=== PATIENT | male | born 1950 | race Caucasian/White ===

== ENCOUNTER 2017-01-10 09:06 | Day surgery (SDC) | payer OTHER ==
[~2017-01-10 09:06] MED LIST: ASPI325 PO; ASPI81CH PO; CRUTCH2 USE; FINA5 PO; FLOMAX; Hydrocodone-Ap1 EA23 PO; METH10 PO; METO50ER PO; MORP30ER PO; NAPR220 PO; OXYACE5T PO; Senna8.6 MG PO; TAMS.4ER PO
--- NOTE | 2017-01-10 11:43 | NUR ---
1100 RECIEVED PT FROM RADIOLOGY DEPT SP LIVER BX. RT FLANK BANDAID D/I. HR 160. BP WNL. PT ASYMPTOMATIC.3 LEAD PLACED, APPEARS SR. 12 LEAD DONE SHOWING A FLUTTER.CALLED JOSH POSADA IN RADIOLOGY. SHE SPOKE TO DR LECHUGA WHO ORDERED PT TO GO TO ER. PINO LECHUGA CALLED ER DOC. 1130 PT TAKEN TO ER. PT STAYED STABLE ASYMPTOMATIC T/O 30 MIN STAY IN DAY SURGERY BUT HR CONTIUED AT 159-161. 1130 PT TAKEN TO ER ROOM 10 VIA DARNELL,REPORT GIVEN TO AIMEE OSBORNE RN
[2017-01-12] MEDS ORDERED: BUPRENORPHIN-N1 EACH SL (13:17)
[2017-01-12] MEDS ORDERED: Cardizem CD 12120 MG PO (15:55)
[2017-10-09] MEDS ORDERED: ASPI81CH PO (14:01)
[2017-12-09] MEDS ORDERED: FISH OIL + D31 EACH PO (10:55)
[2017-12-09] MEDS ORDERED: MILK THISTLE1 GM PO (10:55)
[2017-12-09] MEDS ORDERED: Hair, Skin & N1 EACH PO (10:55)
[2017-12-09] MEDS ORDERED: VISINE TOTALITY15 ML (10:57)
[2017-12-09] MEDS ORDERED: MAVYRET 100-401 EACH PO (10:58)
[2018-01-14] MEDS ORDERED: Aspirin EC81 MG PO (12:42)
[2018-01-14] MEDS ORDERED: FISH OIL 1,0001 EAC1 PO (12:43)
== END 2017-01-10 22:46 | disposition home or self-care (01) ==
LOC: US 09:06
PROVIDERS: Radiology Diagnostic Radiology
PROC: 0FB03ZX Excision of Liver, Percutaneous Approach, Diagnostic (ICD-10-PCS; principal; 2017-01-10 11:00)
DX: B19.20 Unspecified viral hepatitis C without hepatic coma (principal); I97.89 Other postprocedural complications and disorders of the circulatory system, not elsewhere classified; R00.0 Tachycardia, unspecified; K80.20 Calculus of gallbladder without cholecystitis without obstruction
CPT/HCPCS: 47000; 76705; 76942; 88307; 88313

== ENCOUNTER 2017-02-14 02:43 | Day surgery (SDC) | payer OTHER ==
[~2017-02-14] VITALS: Ht 182.9 cm; Wt 75.0 kg
[~2017-02-14 02:43] MED LIST changes: +BUPRENORPHIN-N1 EACH SL; +Cardizem CD 12120 MG PO
[2017-02-14] MEDS ORDERED: SUBOXONE 12 MG1 EACH SL (06:34)
[2017-02-14] MEDS ORDERED: [UNRECOGNIZED DRUG - SUPPLY] UD (06:36)
[2017-02-14] MEDS ORDERED: NAPR220 PO (11:00)
[2017-10-09] MEDS ORDERED: ASPI81CH PO (14:01)
[2017-12-09] MEDS ORDERED: Hair, Skin & N1 EACH PO (10:55)
[2017-12-09] MEDS ORDERED: FISH OIL + D31 EACH PO (10:55)
[2017-12-09] MEDS ORDERED: MILK THISTLE1 GM PO (10:55)
[2017-12-09] MEDS ORDERED: VISINE TOTALITY15 ML (10:57)
[2017-12-09] MEDS ORDERED: MAVYRET 100-401 EACH PO (10:58)
[2018-01-14] MEDS ORDERED: Aspirin EC81 MG PO (12:42)
[2018-01-14] MEDS ORDERED: FISH OIL 1,0001 EAC1 PO (12:43)
== END 2017-02-14 14:50 | disposition home or self-care (01) ==
LOC: MHTC 02:43
PROC: 4A023FZ Measurement of Cardiac Rhythm, Percutaneous Approach (ICD-10-PCS; principal; 2017-02-14)
PROC: 4A0234Z Measurement of Cardiac Electrical Activity, Percutaneous Approach (ICD-10-PCS; principal; 2017-02-14)
PROC: 02583ZZ Destruction of Conduction Mechanism, Percutaneous Approach (ICD-10-PCS; principal; 2017-02-14)
PROC: 02K83ZZ Map Conduction Mechanism, Percutaneous Approach (ICD-10-PCS; principal; 2017-02-14)
DX: I48.92 Unspecified atrial flutter (principal); J44.9 Chronic obstructive pulmonary disease, unspecified; B19.20 Unspecified viral hepatitis C without hepatic coma; R97.20 Elevated prostate specific antigen [PSA]; Z87.891 Personal history of nicotine dependence
CPT/HCPCS: 76937; 93005; 93010; 93613; 93653; 99152; 99153; C1732; C1887; C1893; C1894; J1644; J2250; J3010; J7030; J7040

== ENCOUNTER 2017-10-15 08:13 | Day surgery (SDC) | payer MEDICARE, OTHER ==
[~2017-10-15] VITALS: Ht 182.9 cm; Wt 73.9 kg
[~2017-10-15 08:13] MED LIST changes: +SUBOXONE 12 MG1 EACH SL; +[UNRECOGNIZED DRUG - SUPPLY] UD
== END 2017-10-15 22:43 | disposition home or self-care (01) ==
LOC: ORSCMMR 08:13 → ORD 09:45 → ORSCMMR 09:45
PROVIDERS: Surgery
PROC: 0YU60JZ Supplement Left Inguinal Region with Synthetic Substitute, Open Approach (ICD-10-PCS; principal; 2017-10-15 11:15)
DX: K40.30 Unilateral inguinal hernia, with obstruction, without gangrene, not specified as recurrent (principal); I48.91 Unspecified atrial fibrillation; B19.20 Unspecified viral hepatitis C without hepatic coma; Z87.891 Personal history of nicotine dependence; Z79.82 Long term (current) use of aspirin; Z79.899 Other long term (current) drug therapy
CPT/HCPCS: C1781; J0690; J1100; J1885; J2250; J2405; J3010; J7120

== ENCOUNTER → 2019-07-07 | Outpatient (CLI) | payer MEDICARE, OTHER ==
[~2019-07-07] MED LIST changes: +Aspirin EC81 MG PO; +FISH OIL + D31 EACH PO; +FISH OIL 1,0001 EAC1 PO; +Hair, Skin & N1 EACH PO; +MAVYRET 100-401 EACH PO; +MILK THISTLE1 GM PO; +VISINE TOTALITY15 ML
[2019-07-07 09:01] LABS: BASOPHILS ABSOLUTE AUTO 0.05 K/mm3 (0.00-0.23); BASOPHILS PERCENT AUTO 1 % (0-2); EOSINOPHILS ABSOLUTE AUTO 0.68 K/mm3 (0.00-0.68); EOSINOPHILS PERCENT AUTO 7 % (0-6); Hematocrit 27.1 % (37.0-53.0); Hemoglobin 8.5 g/dL (13.5-17.5); IMMATURE GRAN ABSOLUTE AUTO 0.04 K/mm3 (0.00-0.10); IMMATURE GRAN PERCENT AUTO 0 % (0-1); LYMPHOCYTES PERCENT AUTO 7 % (21-46); MONOCYTES ABSOLUTE AUTO 1.04 K/mm3 (0.16-1.47); MONOCYTES PERCENT AUTO 10 % (4-13); Mean Corpuscular HGB 26.6 pg (26.0-34.0); Mean Corpuscular HGB Conc 31.4 g/dL (31.5-36.5); Mean Corpuscular Volume 85 fL (80-100); Mean Platelet Volume 9.1 fL (9.1-12.4); NEUTROPHILS ABSOLUTE AUTO 7.71 K/mm3 (1.96-9.15); NEUTROPHILS PERCENT AUTO 75 % (41-73); Platelet Count 391 K/mm3 (150-400); RDW Coefficient Variation 15.9 % (11.7-14.2); RDW Standard Deviation 49.8 fL (35.1-46.3); Red Blood Cell Count 3.19 M/mm3 (4.30-5.90); White Blood Cell Count 10.22 K/mm3 (4.00-11.30)
[2019-07-07 09:11] LABS: Alanine Aminotransfer (ALT/SGP 26 U/L (12-78); Albumin, Blood 1.9 g/dL (3.4-5.0); Albumin/Globulin Ratio 0.5 (0.8-1.8); Alk Phos 106 U/L (40-126); Anion Gap 7 mmol/L (6-16); Aspartate Aminotrans (AST/SGOT 23 U/L (12-37); Bilirubin, Total 0.3 mg/dL (0.1-1.0); Blood Urea Nitrogen 23 mg/dL (8-24); Bun/Creatinine Ratio 24.5 (12.0-20.0); CO2, Blood 34 mmol/L (21-32); Chloride, Blood 104 mmol/L (98-108); Creatinine, Blood 0.94 mg/dL (0.60-1.20); Glomerular Filtration Rate >60 (60-); Glucose, Blood 137 mg/dL (70-99); Potassium, Blood 4.4 mmol/L (3.5-5.5); Sodium, Blood 145 mmol/L (136-145); Total Protein, Blood 5.9 g/dL (6.4-8.2)
== END | disposition home or self-care (01) ==
LOC: LAB EV 08:57 → LAB SHORT 08:57
PROVIDERS: Physician Assistant Medical
DX: I95.9 Hypotension, unspecified (principal)
CPT/HCPCS: 80053; 85025

== ENCOUNTER 2019-11-25 07:46 | Day surgery (SDC) | payer MEDICARE, OTHER ==
[~2019-11-25] VITALS: Ht 180.3 cm; Wt 70.2 kg
[~2019-11-25 07:46] MED LIST changes: +COSENTYX P150 MG/11; +HUMIRA(CF)40 MG/0.4 SQ; +MELO7.5 PO; +OXYC10TA19 PO
--- NOTE | 2019-11-25 09:08 | NUR ---
11/25/19 0908 Bee Peralta [facility].MICHELLE BROUGHT PT TO OR.
== END 2019-11-25 09:40 | disposition home or self-care (01) ==
LOC: ORSCSDS 07:46
PROVIDERS: Ophthalmology
PROC: 08RK3JZ Replacement of Left Lens with Synthetic Substitute, Percutaneous Approach (ICD-10-PCS; principal; 2019-11-25 09:00)
DX: H25.12 Age-related nuclear cataract, left eye (principal); I10 Essential (primary) hypertension; I48.91 Unspecified atrial fibrillation; Z79.899 Other long term (current) drug therapy
CPT/HCPCS: J2001; J2250; J3010; J3301; J7040; V2632

== ENCOUNTER 2020-11-02 10:08 | Emergency (ER) | payer MEDICARE, OTHER ==
[~2020-11-02] VITALS: Ht 180.3 cm; Wt 70.3 kg
[2020-11-02] MEDS ORDERED: MORP30 PO (10:39)
[2020-11-02] MEDS ORDERED: ENBREL25 MG (10:39)
[2020-11-02 10:51] LABS: BASOPHILS ABSOLUTE AUTO 0.04 K/mm3 (0.00-0.23); BASOPHILS PERCENT AUTO 1 % (0-2); EOSINOPHILS ABSOLUTE AUTO 0.02 K/mm3 (0.00-0.68); EOSINOPHILS PERCENT AUTO 0 % (0-6); Hemoglobin 13.8 g/dL (13.5-17.5); IMMATURE GRAN ABSOLUTE AUTO 0.02 K/mm3 (0.00-0.10); IMMATURE GRAN PERCENT AUTO 0 % (0-1); LYMPHOCYTES ABSOLUTE AUTO 0.52 K/mm3 (0.84-5.20); LYMPHOCYTES PERCENT AUTO 11 % (21-46); MONOCYTES ABSOLUTE AUTO 0.74 K/mm3 (0.16-1.47); MONOCYTES PERCENT AUTO 16 % (4-13); Mean Corpuscular HGB 28.6 pg (26.0-34.0); Mean Corpuscular HGB Conc 32.9 g/dL (31.5-36.5); Mean Corpuscular Volume 87 fL (80-100); Mean Platelet Volume 8.8 fL (9.1-12.4); NEUTROPHILS ABSOLUTE AUTO 3.34 K/mm3 (1.96-9.15); NEUTROPHILS PERCENT AUTO 71 % (41-73); Platelet Count 228 K/mm3 (150-400); RDW Coefficient Variation 13.5 % (11.7-14.2); RDW Standard Deviation 43.5 fL (35.1-46.3); Red Blood Cell Count 4.82 M/mm3 (4.30-5.90); White Blood Cell Count 4.68 K/mm3 (4.00-11.30)
[2020-11-02 11:11] LABS: Alanine Aminotransfer (ALT/SGP 25 U/L (12-78); Albumin, Blood 2.5 g/dL (3.4-5.0); Albumin/Globulin Ratio 0.8 (0.8-1.8); Alk Phos 71 U/L (50-136); Anion Gap 4 mmol/L (6-16); Aspartate Aminotrans (AST/SGOT 22 U/L (12-37); Bilirubin, Total 0.3 mg/dL (0.1-1.0); Blood Urea Nitrogen 14 mg/dL (8-24); Bun/Creatinine Ratio 16.7 (12.0-20.0); CO2, Blood 32 mmol/L (21-32); Chloride, Blood 105 mmol/L (98-108); Creatinine, Blood 0.84 mg/dL (0.60-1.20); Glomerular Filtration Rate >60 (60-); Glucose, Blood 135 mg/dL (70-99); Potassium, Blood 3.6 mmol/L (3.5-5.5); Sodium, Blood 141 mmol/L (136-145); Total Protein, Blood 5.5 g/dL (6.4-8.2); Troponin I <0.015 ng/mL (0.000-0.040)
== END 2020-11-02 12:06 | disposition home or self-care (01) ==
LOC: ER 10:08
PROVIDERS: Emergency Medicine
DX: R07.2 Precordial pain (principal); I48.91 Unspecified atrial fibrillation; Z79.899 Other long term (current) drug therapy; Z87.891 Personal history of nicotine dependence
CPT/HCPCS: 36415; 71046; 80053; 83880; 84484; 85025; 93005; 93010; 93242; 99285-25

== ENCOUNTER 2021-02-13 06:47 | Day surgery (SDC) | payer MEDICARE, BC, OTHER ==
[~2021-02-13] VITALS: Ht 180.3 cm; Wt 73.0 kg
[~2021-02-13 06:47] MED LIST changes: +ATOR40TA PO; +Aspir 8181 MG PO; +CLOP75 PO; +ENBREL SUR50 MG/1 M1 SC; +ENBREL25 MG; +MORP30 PO; +NEBI5 PO; +NITR.4SL SL; +VITAMIN D31000 UNI1 PO; +Zinc Gluconate100 MG PO
[2021-02-13 07:49] LABS: Influenza A, PCR NEGATIVE (NEGATIVE); Influenza B, PCR NEGATIVE (NEGATIVE); Resp Syncytial Virus, PCR NEGATIVE (NEGATIVE); SARS-Cov-2 (COVID-19) PCR, MMC NEGATIVE (NEGATIVE)
--- NOTE | 2021-02-13 12:00 | NUR ---
R GROIN SITE REMAINS STABLE WITHNO BLEEDING, OOZING OR HEMATOMA NOTED. PT DENIES ANY PAIN. VSS. WILL CONTINUE TO MONITOR. PT DENIES ANY NEEDS AT THIS TIME
--- NOTE | 2021-02-13 13:30 | NUR ---
DISCHARGE PT DRESSED SELF WITH NO COMPLICATIONS. R FEMORAL SITE STABLE WITH NO BLEEDING, OOZING OR HEMATOMA NOTED. PT DENIES ANY PAIN AT SITE. PT REPORTS SOME TENDERNESS AT R RADIAL ATTEMPTED ACCESS SITE BUT NO BLEEDING, OOZING OR HEMATOMA NOTED. PTS VSS. IV DCD WITH CATH INTACT. PT STATES HIS UNDERSTANDING OF DCD AND SITE CARE INSTRUCTIONS AND DENIES ANY QUESTIONS OR CONCERNS. PT TAKEN TO EXIT VIA WHEELCHAIR WHERE SON WAS WAITING WITH VEHICLE.
== END 2021-02-13 13:22 | disposition home or self-care (01) ==
LOC: MHTC 06:47
PROVIDERS: Internal Medicine Cardiovascular Disease
DX: I25.118 Atherosclerotic heart disease of native coronary artery with other forms of angina pectoris (principal); I48.0 Paroxysmal atrial fibrillation; I11.0 Hypertensive heart disease with heart failure; I50.9 Heart failure, unspecified; M45.9 Ankylosing spondylitis of unspecified sites in spine; Z87.891 Personal history of nicotine dependence; Z20.822 Contact with and (suspected) exposure to COVID-19
CPT/HCPCS: 0241U; 93458; 99152; 99153; C1769; C1894; J1644; J2250; J3010; J7030; J7050; Q9967

== ENCOUNTER 2021-02-17 11:59 | Day surgery (SDC) | payer MEDICARE, BC, OTHER ==
[~2021-02-17] VITALS: Ht 180.3 cm; Wt 71.1 kg
[2021-02-17] MEDS ORDERED: ATEN50 (12:20)
== END 2021-02-17 13:25 | disposition home or self-care (01) ==
LOC: ORSCSDS 11:59
PROVIDERS: Internal Medicine Gastroenterology
PROC: 0DJ08ZZ Inspection of Upper Intestinal Tract, Via Natural or Artificial Opening Endoscopic (ICD-10-PCS; principal; 2021-02-17 13:30)
DX: K92.1 Melena (principal); Z86.010 Personal history of colon polyps; K29.70 Gastritis, unspecified, without bleeding; K44.9 Diaphragmatic hernia without obstruction or gangrene; Z87.891 Personal history of nicotine dependence; Z79.82 Long term (current) use of aspirin; Z79.899 Other long term (current) drug therapy
CPT/HCPCS: J2250; J2704; J7120

== ENCOUNTER 2021-05-11 08:14 | Day surgery (SDC) | payer MEDICARE, BC, OTHER ==
[~2021-05-11] VITALS: Ht 180.3 cm; Wt 68.8 kg
[~2021-05-11 08:14] MED LIST changes: +ATEN50
[2021-05-11] MEDS ORDERED: IRON18 MG (08:46)
== END 2021-05-11 10:24 | disposition home or self-care (01) ==
LOC: ORSCSDS 08:14
PROVIDERS: Internal Medicine Gastroenterology
PROC: 0DJD8ZZ Inspection of Lower Intestinal Tract, Via Natural or Artificial Opening Endoscopic (ICD-10-PCS; principal; 2021-05-11 09:30)
DX: K62.5 Hemorrhage of anus and rectum (principal); R10.9 Unspecified abdominal pain; K57.30 Diverticulosis of large intestine without perforation or abscess without bleeding; K64.8 Other hemorrhoids; I48.91 Unspecified atrial fibrillation; J44.9 Chronic obstructive pulmonary disease, unspecified; Z87.891 Personal history of nicotine dependence; Z86.010 Personal history of colon polyps; Z79.899 Other long term (current) drug therapy
CPT/HCPCS: J2704; J7120

== ENCOUNTER → 2022-08-31 | Outpatient (CLI) | payer MEDICARE, BC, OTHER ==
[~2022-08-31] MED LIST changes: +IRON18 MG; +ISOMON20 PO
== END ==
LOC: LAB SHORT 14:11 → LAB 14:11
DX: R19.7 Diarrhea, unspecified (principal)
CPT/HCPCS: 82653

== ENCOUNTER 2022-12-10 02:06 | Day surgery (SDC) | payer MEDICARE, BC ==
[2022-12-10 14:00] VITALS: BP 114/93
== END 2022-12-10 15:20 | disposition home or self-care (01) ==
LOC: ATC 02:06
DX: M45.0 Ankylosing spondylitis of multiple sites in spine (principal)
CPT/HCPCS: 96365; J1602

== ENCOUNTER 2023-01-07 02:51 | Day surgery (SDC) | payer MEDICARE, BC ==
[2023-01-07 10:55] VITALS: BP 150/86
== END 2023-01-07 11:35 | disposition home or self-care (01) ==
LOC: ATC 02:51
DX: M45.9 Ankylosing spondylitis of unspecified sites in spine (principal); Z79.899 Other long term (current) drug therapy
CPT/HCPCS: 96365; J1602

== ENCOUNTER 2023-02-05 01:45 | Day surgery (SDC) | payer MEDICARE, BC ==
[2023-02-05 08:15] VITALS: BP 142/65
== END 2023-02-05 09:12 | disposition home or self-care (01) ==
LOC: ATC 01:45
DX: M45.9 Ankylosing spondylitis of unspecified sites in spine (principal); M47.812 Spondylosis without myelopathy or radiculopathy, cervical region
CPT/HCPCS: 96365; J1602

== ENCOUNTER → 2023-02-05 | Outpatient (CLI) | payer MEDICARE, BC ==
[2023-02-05 13:22] LABS: U Amphetamine Screen Not Detected; U Barbituate Screen Not Detected; U Benzodiazapine Screen Not Detected; U Buprenorphine Screen Not Detected; U Cannabinoids Screen Not Detected; U Cocaine Screen Not Detected; U Methadone Screen Not Detected; U Methamphetamine Screen Not Detected; U Opiates Screen DETECTED; U Oxycodone Screen DETECTED; U Phencyclidine Screen Not Detected
[2023-02-09 07:36] LABS: 6-ACETYLMORPHINE, URN, QUANT <10 ng/mL; CODEINE, URN, QUANT <20 ng/mL; HYDROCODONE, URN, QUANT <20 ng/mL; HYDROMORPHONE, URN, QUANT <20 ng/mL; MORPHINE, URN, QUANT 398 ng/mL; NORHYDROCODONE, URN, QUANT <20 ng/mL; NOROXYCODONE, URN, QUANT 3907 ng/mL; NOROXYMORPHONE, URN, QUANT 266 ng/mL; OXYCODONE, URN, QUANT 1293 ng/mL; OXYMORPHONE, URN, QUANT <20 ng/mL
== END | disposition home or self-care (01) ==
LOC: LAB 10:05 → LAB SHORT 10:05
PROVIDERS: Pain Medicine Pain Medicine
DX: Z51.81 Encounter for therapeutic drug level monitoring (principal); Z79.891 Long term (current) use of opiate analgesic
CPT/HCPCS: G0480

== ENCOUNTER 2023-04-02 03:35 | Day surgery (SDC) | payer MEDICARE, BC ==
[2023-04-02 08:03] VITALS: BP 125/65
[2023-04-02] MEDS ORDERED: GOLIMUMAB IV SCH (08:05)
[2023-04-02] MEDS ORDERED: NS IV SCH (08:05)
== END 2023-04-02 09:10 | disposition home or self-care (01) ==
LOC: ATC 03:35
DX: M45.9 Ankylosing spondylitis of unspecified sites in spine (principal); M47.812 Spondylosis without myelopathy or radiculopathy, cervical region
CPT/HCPCS: 96365; J1602

== ENCOUNTER 2023-07-24 02:56 | Day surgery (SDC) | payer MEDICARE, BC ==
[2023-07-24] MEDS ORDERED: Golimumab 150 MG in NS 100 ML IV SCH (06:00)
[2023-07-24 08:12] VITALS: BP 112/78
== END 2023-07-24 09:11 | disposition home or self-care (01) ==
LOC: ATC 02:56
DX: M45.9 Ankylosing spondylitis of unspecified sites in spine (principal)
CPT/HCPCS: 96365; J1602

== ENCOUNTER 2023-11-14 02:37 | Day surgery (SDC) | payer MEDICARE, BC ==
[~2023-11-14] VITALS: Wt 62.5 kg
[2023-11-14 10:05] VITALS: BP 125/76
[2023-11-14] MEDS ORDERED: GOLIMUMAB IV SCH (10:06)
[2023-11-14] MEDS ORDERED: NS IV SCH (10:06)
== END 2023-11-14 11:00 | disposition home or self-care (01) ==
LOC: ATC 02:37
DX: M45.2 Ankylosing spondylitis of cervical region (principal); G89.29 Other chronic pain; Z79.899 Other long term (current) drug therapy
CPT/HCPCS: 96365; J1602

== ENCOUNTER 2023-12-26 05:19 | Day surgery (SDC) | payer MEDICARE, BC ==
[~2023-12-26] VITALS: Wt 65.2 kg
[2023-12-26 08:08] VITALS: BP 126/73
[2023-12-26] MEDS ORDERED: TESTOSTERO200 MG/1 M IM (08:13)
[2023-12-26] MEDS ORDERED: Golimumab 130 MG in NS 100 ML IV SCH (08:15)
== END 2023-12-26 09:18 | disposition home or self-care (01) ==
LOC: ATC 05:19
DX: M45.9 Ankylosing spondylitis of unspecified sites in spine (principal); Z79.899 Other long term (current) drug therapy
CPT/HCPCS: 96365; J1602

== ENCOUNTER 2024-02-19 03:39 | Day surgery (SDC) | payer MEDICARE, BC ==
[~2024-02-19] VITALS: Wt 69.0 kg
[~2024-02-19 03:39] MED LIST changes: +TESTOSTERO200 MG/1 M IM
[2024-02-19 08:10] VITALS: BP 129/71
[2024-02-19] MEDS ORDERED: GOLIMUMAB IV SCH (08:20)
[2024-02-19] MEDS ORDERED: NS IV SCH (08:20)
== END 2024-02-19 09:40 | disposition home or self-care (01) ==
LOC: ATC 03:39
DX: M45.0 Ankylosing spondylitis of multiple sites in spine (principal); M47.812 Spondylosis without myelopathy or radiculopathy, cervical region; G89.4 Chronic pain syndrome; D84.821 Immunodeficiency due to drugs; R79.89 Other specified abnormal findings of blood chemistry; Z79.899 Other long term (current) drug therapy
CPT/HCPCS: 36415; 83001; 96365; J1602

== ENCOUNTER 2024-04-15 01:12 | Day surgery (SDC) | payer MEDICARE, BC ==
[2024-04-15 08:04] VITALS: BP 145/70
[2024-04-15] MEDS ORDERED: NS IV SCH (08:20)
[2024-04-15] MEDS ORDERED: GOLIMUMAB IV SCH (08:20)
--- NOTE | 2024-04-15 09:13 | NUR ---
SIMPONI ARIA DOSE ADJUSTMENT MED WAS ORDERED FOR WEIGHT IN POUNDS AND NOT KG. IP/MOSAIC TECHNICIAN STUDENT SPIKED THE BAG. RN VERIFIED THE ORDER AND NOTICED THE DISCREPANCY WITH PT WEIGHT. MEDICATION NOT HUNG AND PHARMACIST EMELY NOTIFIED. PER PHARMACIST, OKAY TO CONTINUE WITH THIS BAG BUT TO RUN ON 46 ML WHICH EQUALS THE APPROPRIATE DOSE OF 2MG/KG AT 69.2 KG. RUNNIN LEVI 30 MINUTES.
== END 2024-04-15 09:44 | disposition home or self-care (01) ==
LOC: ATC 01:12
DX: M45.2 Ankylosing spondylitis of cervical region (principal); G89.4 Chronic pain syndrome; Z79.899 Other long term (current) drug therapy
CPT/HCPCS: 96365; J1602

== ENCOUNTER 2024-06-11 01:30 | Day surgery (SDC) | payer MEDICARE, BC ==
[~2024-06-11] VITALS: Wt 69.8 kg
[2024-06-11] MEDS ORDERED: ELIQUIS5 M2 PO (08:02)
[2024-06-11 08:03] VITALS: BP 148/67
[2024-06-11] MEDS ORDERED: NS IV SCH (08:10)
[2024-06-11] MEDS ORDERED: GOLIMUMAB IV SCH (08:10)
== END 2024-06-11 09:09 | disposition home or self-care (01) ==
LOC: ATC 01:30
DX: M45.0 Ankylosing spondylitis of multiple sites in spine (principal); Z79.899 Other long term (current) drug therapy
CPT/HCPCS: 96365; J1602

== ENCOUNTER 2024-08-07 03:34 | Day surgery (SDC) | payer MEDICARE, BC ==
[~2024-08-07] VITALS: Wt 67.9 kg
[~2024-08-07 03:34] MED LIST changes: +ELIQUIS5 M2 PO
[2024-08-07 08:14] VITALS: BP 135/70
[2024-08-07] MEDS ORDERED: GOLIMUMAB IV SCH (08:15)
[2024-08-07] MEDS ORDERED: NS IV SCH (08:15)
== END 2024-08-07 08:59 | disposition home or self-care (01) ==
LOC: ATC 03:34
DX: M45.9 Ankylosing spondylitis of unspecified sites in spine (principal); G89.29 Other chronic pain; Z79.899 Other long term (current) drug therapy
CPT/HCPCS: 96365; J1602

== ENCOUNTER 2024-10-06 00:55 | Day surgery (SDC) | payer MEDICARE, BC ==
[~2024-10-06] VITALS: Wt 67.9 kg
[2024-10-06 16:40] VITALS: BP 129/73
[2024-10-06] MEDS ORDERED: GOLIMUMAB IV SCH (16:50)
[2024-10-06] MEDS ORDERED: NS IV SCH (16:50)
== END 2024-10-06 17:53 | disposition home or self-care (01) ==
LOC: ATC 00:55
DX: M45.0 Ankylosing spondylitis of multiple sites in spine (principal)
CPT/HCPCS: 96365; J1602

== ENCOUNTER 2024-12-01 00:48 | Day surgery (SDC) | payer MEDICARE, BC ==
[~2024-12-01] VITALS: Wt 68.5 kg
[2024-12-01 13:24] VITALS: BP 126/79
[2024-12-01] MEDS ORDERED: NS IV SCH (13:40)
[2024-12-01] MEDS ORDERED: GOLIMUMAB IV SCH (13:40)
== END 2024-12-01 14:34 | disposition home or self-care (01) ==
LOC: ATC 00:48
DX: M45.0 Ankylosing spondylitis of multiple sites in spine (principal); G89.4 Chronic pain syndrome; M47.812 Spondylosis without myelopathy or radiculopathy, cervical region; Z79.891 Long term (current) use of opiate analgesic; Z79.899 Other long term (current) drug therapy; R60.0 Localized edema; E29.1 Testicular hypofunction
CPT/HCPCS: 36415; 80053; 84403; 85025; 96365; J1602

== ENCOUNTER → 2024-12-10 | Outpatient (CLI) | payer MEDICARE, BC ==
[2024-12-10 16:20] LABS: Campylobacter Sp Not Detected (NOT DETECT)
[2024-12-10 16:21] LABS: E. Coli O157 Not Detected (NOT DETECT); Enteroaggregative E. coli-EAEC Not Detected (NOT DETECT); Enteropathogenic E. coli-EPEC Not Detected (NOT DETECT); Enterotoxigenic E. coli-ETEC Not Detected (NOT DETECT); Salmonella Sp Not Detected (NOT DETECT); Shiga Toxin-prod E. coli-STEC Not Detected (NOT DETECT); Shigella/Enteroin E. coli-EIEC Not Detected (NOT DETECT); Vibrio Sp Not Detected (NOT DETECT)
== END | disposition home or self-care (01) ==
LOC: LAB SHORT 12:39 → LAB 12:39
PROVIDERS: Physician Assistant
DX: R19.7 Diarrhea, unspecified (principal); R53.83 Other fatigue; R50.9 Fever, unspecified
CPT/HCPCS: 87507

== ENCOUNTER 2025-01-26 00:01 | Day surgery (SDC) | payer MEDICARE, BC ==
[2025-01-26 07:50] VITALS: BP 109/64
[2025-01-26] MEDS ORDERED: NS IV SCH (08:00)
[2025-01-26] MEDS ORDERED: GOLIMUMAB IV SCH (08:00)
[2025-01-26] MEDS ORDERED: ELIQUIS5 M3 PO (08:08)
[2025-01-26] MEDS ORDERED: XDEMVY10 ML BOTHEYES (08:09)
[2025-01-26] MEDS ORDERED: METO50ER (08:09)
== END 2025-01-26 08:57 | disposition home or self-care (01) ==
LOC: ATC 00:01
DX: M45.0 Ankylosing spondylitis of multiple sites in spine (principal); G89.4 Chronic pain syndrome; Z79.01 Long term (current) use of anticoagulants; Z79.891 Long term (current) use of opiate analgesic; Z79.899 Other long term (current) drug therapy; Z98.1 Arthrodesis status
CPT/HCPCS: 96413; J1602